=== PATIENT | male | born 1960 | race Caucasian/White ===

== ENCOUNTER 2016-12-14 14:55 | Emergency (ER) | payer SELFPAY ==
--- NOTE | ~2016-12-14 | CR229 ---
[facility] A Service of [facility] RADIOLOGY TEXT RESULTS PATIENT: CASPER BLACKMAN JR LOCATION: SED : 62 UNIT #: [id number] AGE: [address]: BRENNAN HERRON SEX: M ORDER DR: [id number] [place] [id number] E MR#: [id number] Acc #: [id number] NAME: CASPER BLACKMAN JR : 1960 SEX: M STUDY DATE/TIME: 12/14/2016 16:14 UNIT: SED ROOM: STUDY DESCRIPTION: CR Shoulder Min 2 View Lt Attending Physician: Brennan Herron Aprn Ordering Physician: Brennan Herron Aprn MEDICAL IMAGING REPORT This report is preliminary unless electronic signature is present. EXAM Left shoulder series. HISTORY Left shoulder clavicle. Fell 2 days ago. TECHNIQUE AP, internal and external rotation views of the left shoulder are presented. FINDINGS No traumatic fracture. There is widening of the acromioclavicular joint to about 8 mm. In addition, the acromion projects slightly caudad relative to the articular surface of the clavicle. In the context trauma, the appearance is suggestive of mild acromioclavicular separation. Correlate with exam and mechanism of injury. Glenohumeral joint relationship normal. Visualized ribs intact. Pulmonary parenchyma shows evidence of prior exposure to granulomas disease but no acute-appearing abnormality. There is no soft tissue defect, subcutaneous air, or radiodense foreign body. Dictated by... Moises Adams M.D. THIS IS AN ELECTRONICALLY VERIFIED REPORT Moises Adams M.D. at 12/16/2016 11:34 AM ESTHELA/elton TD: 12/15/2016 11:36 JOB #: [id number] [facility] A Service of [facility] RADIOLOGY TEXT RESULTS PATIENT: CASPER BLACKMAN JR LOCATION: SED : 62 UNIT #: [id number] AGE: [address]: BRENNAN HERRON SEX: M ORDER DR: MEDICAL IMAGING REPORT Page 1 of 1
--- NOTE | ~2016-12-14 | CR77 ---
[facility] A Service of [facility] RADIOLOGY TEXT RESULTS PATIENT: CASPER BLACKMAN JR LOCATION: SED : 62 UNIT #: [id number] AGE: [address]: BRENNAN HERRON SEX: M ORDER DR: [id number] [place] [id number] E MR#: [id number] Acc #: [id number] NAME: CASPER BLACKMAN JR : 1960 SEX: M STUDY DATE/TIME: 12/14/2016 16:14 UNIT: SED ROOM: STUDY DESCRIPTION: CR Clavicle Comp Lt Attending Physician: Brennan Herron Aprn Ordering Physician: Brennan Herron Aprn MEDICAL IMAGING REPORT This report is preliminary unless electronic signature is present. EXAM Left clavicle series 12/14/2016 HISTORY Status post fall 2 days ago. Left shoulder pain. TECHNIQUE AP and lordotic views of the left clavicle are presented. COMPARISON STUDIES No fracture. FINDINGS The acromioclavicular distance is about 8 mm and the acromion projects slightly caudad to the articular surface of the clavicle. The appearance suggests mild acromioclavicular separation. Please correlate with mechanism of injury and location of patient's pain. The glenohumeral joint relationship appears normal. No traumatic fracture seen. There are some faint calcifications superimposed over the acromioclavicular joint, likely reflecting chronic calcifications. No soft tissue defect, subcutaneous air radiodense foreign body. Calcified granulomata in the left lung. The visualized left ribs are intact. Dictated by... Moises Adams M.D. THIS IS AN ELECTRONICALLY VERIFIED REPORT Moises Adams M.D. at 12/16/2016 11:34 AM ESTHELA/diane [facility] A Service of [facility] RADIOLOGY TEXT RESULTS PATIENT: CASPER BLACKMAN JR LOCATION: SED : 62 UNIT #: [id number] AGE: [address]: BRENNAN HERRON SEX: M ORDER DR: TD: 12/15/2016 11:35 JOB #: [id number] MEDICAL IMAGING REPORT Page 1 of 1
[2016-12-14] MEDS ORDERED: OMEPRAZOLE20 M2 PO (15:04)
== END 2016-12-14 17:27 | disposition home or self-care (01) ==
LOC: SED 14:55
DX: S43.102A Unspecified dislocation of left acromioclavicular joint, initial encounter (principal); K21.9 Gastro-esophageal reflux disease without esophagitis; Z79.899 Other long term (current) drug therapy; W18.39XA Other fall on same level, initial encounter; Y92.009 Unspecified place in unspecified non-institutional (private) residence as the place of occurrence of the external cause
CPT/HCPCS: 73000; 73030; 99283